=== PATIENT | female | born 1955 | race Caucasian/White ===

== ENCOUNTER 2017-05-05 07:26 | Inpatient (IN) ==
[2017-05-03 19:51] LABS: Appearance,Urine CLEAR; Bacteria,Urine 0 /hpf (0); Bilirubin,Urine NEG (NEG); Color,Urine YELLOW; Glucose,Urine (UA) NEGATIVE (NEG); Leukocyte Esterase,Urine 500 /uL (NEG); Mucus,Urine FEW /hpf (0); Protein,Urine NEG (NEG); Specific Gravity,Urine 1.013 (1.000-1.035); Urine Blood 0.03 mg/dL (<0.03); Urine RBC 1 /hpf (0-1); Urine Squamous Epithelial Cell 3 /hpf (0-4); Urine Transitional Epi Cells 2 /hpf (0-2); Urine WBC 59 /hpf (0-4); Urobilinogen,Urine NEG (NEG)
[2017-05-03 21:12] LABS: Blood Urea Nitrogen 14 mg/dl (8-23)
[2017-05-03 21:19] LABS: Basophils # (Auto) 0 K/mcL (0.0-0.3); Basophils % (Auto) 0.3 % (0.0-2.0); Eosinophils # (Auto) 0.4 K/mcL (0.0-0.7); Eosinophils % (Auto) 3.5 % (0.0-7.0); Granulocytes % (Auto) 66.8 % (38.0-78.0); Lymphocytes # (Auto) 3.1 K/mcL (1.5-4.8); Lymphocytes % (Auto) 25.7 % (15.5-49.0); Mean Corpuscular HGB Conc 32.7 g/dL (31.0-36.0); Mean Corpuscular Hemoglobin 26.9 pg (26.0-34.0); Monocytes # (Auto) 0.4 K/mcL (0.1-0.9); Monocytes % (Auto) 3.7 % (1.0-12.0); Platelet Count 430 K/mcL (140-440); Red Cell Distribution Width 14.7 % (11.5-14.5)
[~2017-05-05 07:26] MED LIST: CELECOXIB 200 MG CAPSULE PO SCH; PREGABALIN 75 MG CAPSULE PO SCH; VANCOMYCIN 1,500 MG in 0.9 % SODIUM CHLORIDE 500 ML IV SCH; oxyCODONE 10 MG TAB.ER.12H PO SCH
[2017-05-05 09:14] LABS: Appearance,Urine CLEAR; Bilirubin,Urine NEG (NEG); Color,Urine PALE YELLOW; Glucose,Urine (UA) NORM (NEG); Leukocyte Esterase,Urine NEG /uL (NEG); Protein,Urine NEG (NEG); Specific Gravity,Urine 1.018 (1.000-1.035); Urine Blood NEG ery/mcL (<5); Urobilinogen,Urine NORM (NEG)
[2017-05-05] MEDS ORDERED: GENTAMICIN SULFATE 80 MG in 0.9 % SODIUM CHLORIDE 250 ML IV SCH (10:45)
[2017-05-05] MEDS ORDERED: BUPIVACAINE W/EPI 0.5% 50 ML VIAL IJ ONE (11:38)
[2017-05-05] MEDS ORDERED: HYDROmorphone 2 MG/ML VIAL IV ONE (12:00)
[2017-05-05] MEDS ORDERED: PROPOFOL 200 MG/20 ML VIAL IV ONE (12:00)
[2017-05-05] MEDS ORDERED: NALBUPHINE 10 MG/ML AMPUL IV ONE (12:00)
[2017-05-05] MEDS ORDERED: PHENYLEPHRINE 10 MG/ML VIAL IV ONE (12:00)
[2017-05-05] MEDS ORDERED: MIDAZOLAM 2 MG/2 ML VIAL IV ONE (12:00)
[2017-05-05] MEDS ORDERED: KETAMINE 100 MG/ML ML IV ONE (12:00)
[2017-05-05] MEDS ORDERED: TRANEXAMIC ACID 1,000 MG/10 ML VIAL IV ONE (12:00)
[2017-05-05] MEDS ORDERED: LIDOCAINE HCL/PF 100 MG/5 ML SYRINGE IV ONE (12:00)
[2017-05-05] MEDS ORDERED: ONDANSETRON 4 MG/2 ML VIAL IV ONE (12:00)
[2017-05-05] MEDS ORDERED: GLYCOPYRROLATE 0.2 MG/ML VIAL IV ONE (12:00)
[2017-05-05] MEDS ORDERED: diphenhydrAMINE 50 MG/ML VIAL IV PRN (13:20)
[2017-05-05] MEDS ORDERED: ePHEDrine 50 MG/ML AMPUL IV PRN (13:20)
[2017-05-05] MEDS ORDERED: METOPROLOL TARTRATE 5 MG/5 ML VIAL IV PRN (13:20)
[2017-05-05] MEDS ORDERED: PROMETHAZINE 25 MG/ML VIAL IV PRN (13:20)
[2017-05-05] MEDS ORDERED: IPRATROPIUM/ALBUTEROL 3 ML AMPUL.NEB NEB PRN (13:20)
[2017-05-05] MEDS ORDERED: ONDANSETRON 4 MG/2 ML VIAL IV PRN ×2 (13:20→13:30)
[2017-05-05] MEDS ORDERED: METHOCARBAMOL 1,000 MG/10 ML VIAL IV PRN (13:20)
[2017-05-05] MEDS ORDERED: NALOXONE HCL 0.4 MG/ML VIAL IV PRN (13:20)
--- NOTE | 2017-05-05 13:29 | Brief Operative Note ---
Date of procedure: 05/05/17 Pre-op diagnosis: R shoulder severe DJD Post-op diagnosis: same Procedure: R total shoulder arthroplasty Grafts/Implants: Yes (Depuy 44 anchor peg, global 10 unite stem, 44x15 eccentric head) Anesthesia: GETA Findings: severe arthritis, osteopenia Complications: none Surgeon: Smith Donaldson Etcher Electrolytic: Josué Jeronimo Estimated blood loss (cc): 30 Specimens Removed/Pathology: none sent Condition: stable Disposition: PACU
[2017-05-05] MEDS ORDERED: DEXTROSE 50% 50 ML VIAL IV PRN (13:30)
[2017-05-05] MEDS ORDERED: DEXTROSE 31 GM ORAL.SUSP PO PRN (13:30)
[2017-05-05] MEDS ORDERED: MAGNESIUM HYDROXIDE 30 ML ORAL.SUSP PO PRN (13:30)
[2017-05-05] MEDS ORDERED: FLEETS ADULT ENEMA PR PRN (13:30)
[2017-05-05] MEDS ORDERED: BISACODYL 10 MG SUPP.RECT PR PRN (13:30)
[2017-05-05] MEDS ORDERED: LACTATED RINGERS 1,000 ML IV SCH (13:30)
[2017-05-05] MEDS ORDERED: TRANEXAMIC ACID 1,000 MG/10 ML VIAL IV SCH (13:30)
[2017-05-05] MEDS ORDERED: POLYETHYLENE GLYCOL 3350 17 GM PACKET PO PRN (13:30)
[2017-05-05] MEDS ORDERED: BENZOCAINE/MENTHOL 1 LOZENGE PO PRN (13:30)
[2017-05-05] MEDS ORDERED: METAXALONE 800 MG TABLET PO PRN (13:41)
[2017-05-05] MEDS: fentaNYL 100 MCG/2 ML VIAL IV PRN ×9 (14:09→14:50)
--- NOTE | 2017-05-05 14:22 | Operative Note ---
DATE OF OPERATION: 05/05/2017 PREOPERATIVE DIAGNOSIS: Right shoulder severe osteoarthritis. POSTOPERATIVE DIAGNOSIS: Right shoulder severe osteoarthritis. PROCEDURE PERFORMED: Right total shoulder arthroplasty placing a DePuy Global Unite size 10 cementless stem, a 44 x 15 eccentric humeral head, and a 44 [place] Peg Glenoid. SURGEON: Smith Donaldson M.D. COMMUNITY SERVICE AIDE: Reji Jeronimo PA-C. ANESTHESIA: General. DRAINS: None. SPECIMENS: None. COMPLICATIONS: None. BLOOD LOSS: 100 mL. POSTOPERATIVE CONDITION: Stable. INDICATIONS FOR SURGERY: This is a 61-year-old female who has had longstanding worsening right shoulder pain. Radiographs showed severe [id number] osteoarthritis with large osteophytes formation. Post-implantation showed good overall component position. However, she did have poor bone quality. PROCEDURE IN DETAIL: The patient had been seen preoperatively. Informed consent had been obtained after discussion of risks and benefits of surgery. Risks including, but not limited to, bleeding, possibly requiring transfusion; infection, possibly requiring implant removal and prolonged IV antibiotics; injury to nerves, blood vessels, and other surrounding structures; anesthetic risks; incomplete or no resolution of symptoms; stiffness; pain; weakness; dislocation; fracture; possibility of needing further revision surgery. She understood these risks and wished to proceed. Correct operative site was marked and then patient was taken to the operating room. General anesthesia was induced. She was carefully positioned in the beach chair position and pressure points carefully padded. The right shoulder and upper extremity was carefully prepped and draped in normal sterile fashion. Ioban was used to cover all skin surfaces and then a standard deltopectoral incision was made with scalpel through skin and subcutaneous tissue. Irrisept was irrigated and then we continued carefully bluntly dissecting down onto the cephalic vein and then dissected medial to it, and blunt finger dissection was used to develop the subdeltoid space. Cao deltoid retractor was placed. We then placed a blue handle retractor underneath the conjoined tendon. We went ahead and identified the bicipital groove. The biceps appeared to already be ruptured and scarred. We made a lesser tuberosity osteotomy and then placed a traction stitch around this. We then went ahead and placed the 2-tooth on the glenoid. The humeral head was then dislocated out. We released capsule around the inferior neck of the humeral head and osteophytes were removed with a curved osteotome. We then subluxed the head posteriorly and started exposing the glenoid. We released what remained of labrum and also capsule around the inferior glenoid, staying right on bone with the Bovie. We then used an osteotome on the humeral head to aid our exposure and then a central pin was placed. We then reamed up to a 44 reamer. She was fairly small [id number]. There was some superior glenoid osteophyte that we removed as well. Once we had contacted bone circumferentially, we then drilled our central peg and then after that drilled our three peripheral pegs. Cement was mixed while the [place] Peg Glenoid was packed with DBX in the central flutes. We irrigated Irrisept in the joint, after a minute pulse lavaged with saline, and then injected cement into the three peripheral holes and pressurized and then impacted the [place] Peg Glenoid. This was held absolutely still until cement had fully hardened. Meanwhile, the joint was filled with Irrisept. We then pulse lavaged and redislocated the humeral head. It appeared to be damaged beyond what cap would be appropriate for, so we went ahead and made our head cut with the saw and then started reaming down the canal. She had very poor bone quality. We did get canal contact with a 10 reamer, so we then did 30 degrees of retroversion and impacted the trial with the fins to punch and then placed our definitive trial. We liked this position, so we went ahead and opened the stem. We removed the trial and irrigated Irrisept down the humeral canal. After a minute we pulse lavaged and then impacted the stem. A 44 x 15 seemed to fit best, so we placed this with the eccentricity going superiorly. The humerus was reduced. We made drill holes in the bicipital groove medial to the osteotomy and then used a #2 FiberWire [id number] around the lesser tuberosity fragment and tied this. The subscapularis was somewhat thin and poor quality, however. We did go ahead and close the rotator interval with a #2 FiberWire and then our traction stitch was used with a free needle to also reinforce the subscap repair. We irrigated Irrisept again, after a minute pulse lavaged with saline. A running #1 Vicryl was used to close the deltopectoral interval. Final Irrisept irrigation was done, and then after a minute final pulse lavage, and then 2-0 Monocryl for subcutaneous and cesar for skin. Xeroform and sterile dressing were applied, and patient was then awakened, extubated, and transferred to recovery in stable condition. LARRY:zeyad Job ID: [id number] Doc ID: [id number] Smith Donaldson MD
[2017-05-05] MEDS ORDERED: DIAZEPAM 10 MG/2 ML SYRINGE IV PRN (14:28)
[2017-05-05] MEDS ORDERED: LORazepam 2 MG/ML VIAL IV SCH (14:45)
[2017-05-05] MEDS ORDERED: LORazepam 2 MG/ML VIAL IV PRN (14:45)
--- NOTE | 2017-05-05 14:45 | XRay Report ---
CLINICAL INFORMATION: Reason for Exam:Post-OP Total Shoulder COMPARISON: None. FINDINGS: Shoulder prostheses is anatomically aligned. No osseous abnormality. Soft tissues swelling seen as expected IMPRESSION: Negative Interpreted and Authenticated by: Nhan Henriquez 05/05/17
[2017-05-05] MEDS: 0.9 % SODIUM CHLORIDE 1,000 ML IV SCH (15:19)
[2017-05-05] MEDS: 0.9 % SODIUM CHLORIDE 10 ML SYRINGE IV SCH ×2 (15:28→22:06)
[2017-05-05] MEDS: HYDROcodone/APAP 10/325MG TABLET PO PRN ×2 (15:45→19:51)
[2017-05-05] MEDS: KETOROLAC 15 MG/ML VIAL IV PRN ×2 (16:50→22:17)
[2017-05-05] MEDS ORDERED: INSULIN LISPRO 1 UNIT/0.01 ML UNIT SQ SCH (17:00)
[2017-05-05] MEDS: DOCUSATE SODIUM 100 MG CAPSULE PO SCH (19:51)
[2017-05-05] MEDS: CLINDAMYCIN 900 MG in 0.9 % SODIUM CHLORIDE 50 ML IV SCH (19:51)
[2017-05-05] MEDS ORDERED: SENNOSIDES 1 TABLET PO SCH (21:00)
[2017-05-05] MEDS ORDERED: LORazepam 0.5 MG TABLET PO PRN (21:00)
[2017-05-06] MEDS: HYDROcodone/APAP 10/325MG TABLET PO PRN ×4 (01:35→12:20)
[2017-05-06] MEDS: 0.9 % SODIUM CHLORIDE 1,000 ML IV SCH ×2 (01:35→09:36)
[2017-05-06] MEDS: KETOROLAC 15 MG/ML VIAL IV PRN (04:49)
[2017-05-06] MEDS: CLINDAMYCIN 900 MG in 0.9 % SODIUM CHLORIDE 50 ML IV SCH (04:49)
[2017-05-06] MEDS: 0.9 % SODIUM CHLORIDE 10 ML SYRINGE IV SCH (05:55)
[2017-05-06] MEDS ORDERED: OMEPRAZOLE 20 MG CAPSULE PO SCH (07:30)
[2017-05-06] MEDS ORDERED: LEVOTHYROXINE SODIUM 112 MCG TABLET PO SCH (07:30)
--- NOTE | 2017-05-06 07:47 | Discharge Summary ---
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 Chief Complaint: [] Discharge date: 05/06/17 Hospitalization Hospital course: Pt was admitted for a R TSA. Pt underwent the procedure on day of admission. Pt spent one night on the floor for IV pain meds, IV abx, and PT. Pt discharged on post-op day 1. Will f/u at [facility] in 10-14 days. Discharge diagnosis: R shoulder osetoarthrosis Exam - Exam Clean and dry: Yes Weight bearing status: none Ortho Discharge - TSA - Patient Instructions Diet: Regular Diet Activity: activity as tolerated, non weight bearing Total Shoulder Protocol: Leave immobilizer in place except for bathing and ROM. Abduction pillow. Continue to wear sling until seen by physician. [place]man Pendulum : These exercises use momentum produced by your body to move your shoulder joint. Bend your knees and shift your weight to your front leg, then back, allowing your arm to swing in the same directions. Using the same technique, alternately shift your weight between your right and left legs, allowing your arm to swing from side to side. These exercises are also performed in counterclockwise and clockwise circular motions. Typically these exercises are performed several times per day, for a set number repetitions or minutes, such as 20 times in a row or 5 minutes at a time. Dressing Care: May shower in 2 days Patient Education: Shoulder Arthroscopy (DC) - Follow Up Plan Follow Up Appointments: Josué Jeronimo PA-C [Physician Administration Intern] - 05/20/17 10:40 am Disposition: Home, Self-Care Prognosis: Good Rehab Potential: Good Overall status at discharge: patient is progressing back to baseline - Orders For Discharge Prescriptions: HYDROcodone/APAP 10/325MG [[place] 10-325Mg] 1 - 2 tab PO Q4HP PRN #60 tab PRN Reason: Pain Level 3-6 Pending Studies Resuscitation Status Full Code Diet Regular Diet Start WedMay 05 1700 Hydrocodone Bitart/Acetaminophen ([place] 10/325mg) 0 tab PO Q4HP PRN PRN Reason: PAIN LEVEL 3-6 Last Admin: 05/06/17 04:49 Dose: 1 tab Admin: 05/06/17 01:35 Dose: 1 tab Admin: 05/05/17 19:51 Dose: 2 tab Admin: 05/05/17 15:45 Dose: 2 tab Docusate Sodium (Colace) 100 mg PO BID [facility] Last Admin: 05/05/17 19:51 Dose: 100 mg Sodium Chloride (Sodium Chloride 0.9%) 1,000 mls @ 100 mls/hr IV .Q10H [facility] Last Admin: 05/06/17 01:35 Dose: 100 mls/hr Infusion: 05/06/17 01:19 Dose: 100 mls/hr Admin: 05/05/17 15:19 Dose: 100 mls/hr Ketorolac Tromethamine (Toradol) 15 mg IV Q6HP PRN PRN Reason: Pain Stop: 05/07/17 13:33 Last Admin: 05/06/17 04:49 Dose: 15 mg Admin: 05/05/17 22:17 Dose: 15 mg Admin: 05/05/17 16:50 Dose: 15 mg Levothyroxine Sodium (Synthroid) 112 mcg PO ACB [facility] Last Admin: 05/06/17 07:04 Dose: 112 mcg Morphine Sulfate (Morphine) 0 mg IV Q1HP PRN PRN Reason: PAIN LEVEL > 6 Last Admin: 05/05/17 18:48 Dose: 2 mg Admin: 05/05/17 15:19 Dose: 4 mg Omeprazole (Prilosec) 20 mg PO ACB [facility] Last Admin: 05/06/17 07:04 Dose: 20 mg Senna (Senokot) 2 tab PO HS [facility] Last Admin: 05/05/17 19:51 Dose: 2 tab Sodium Chloride (Saline Flush) 10 ml IV Q8 [facility] Last Admin: 05/06/17 05:55 Dose: Not Given Admin: 05/05/17 22:06 Dose: Not Given Admin: 05/05/17 15:28 Dose: Not Given Shift Summary 05/06/17 04:08 Shift Summary by Jose Zavaleta up w/1 assist to BR, slightly unsteady at times, voiding QS with no PVR, peripad in place d/t stress incontinence, will SL IV this AM, dsg with marked fingerprint myrick, immobilizer in place, medicated with norco 10/325mg 2 tabs once at 1999, pt put on 2L NC at midnight d/t RA sats 82%, now on 1L NC sats high 90's, has received norco 1 tab once since midnight, given toradol Q6H prn, ice to shoulder also for pain control, pt needs continued teaching about pain scale - rates pain 7-8/10 even though sleeping well, AVB on t/o night, supportive- no orders for d/c at this time Initialized on 05/06/17 04:08 - END OF NOTE
[2017-05-06] MEDS ORDERED: POTASSIUM CHLORIDE 10 MEQ TABLET PO SCH (08:00)
[2017-05-06] MEDS: DOCUSATE SODIUM 100 MG CAPSULE PO SCH (08:35)
[2017-05-06] MEDS ORDERED: FLUoxetine HCL 20 MG CAPSULE PO SCH (09:00)
[2017-05-06] MEDS ORDERED: LOSARTAN 50 MG TABLET PO SCH (09:00)
[2017-05-06] MEDS ORDERED: HYDROCHLOROTHIAZIDE 25 MG TABLET PO SCH (09:00)
== END 2017-05-06 12:25 | disposition home or self-care (01) | DRG 483 ==
LOC: MEDSUR 07:26
PROVIDERS: ADMIT Orthopaedic Surgery; ATTEND Orthopaedic Surgery

== ENCOUNTER 2024-06-17 11:24 | Inpatient (IN) ==
[2024-06-17] MEDS: KETOROLAC 15 MG/ML VIAL IV ONE (11:51)
[2024-06-17] MEDS: HYDROmorphone 0.5 MG/0.5 ML SYRINGE IV ONE (13:31)
[2024-06-17] MEDS: HYDROcodone/APAP 5/325MG TABLET PO ONE (13:45)
[2024-06-17] MEDS: HYDROcodone/APAP 10/325MG TABLET PO ONE (13:45)
[2024-06-17 14:50] LABS: Basophils # (Auto) 0.06 K/mcL (0.00-0.30); Basophils % (Auto) 0.4 % (0.0-2.0); Eosinophils # (Auto) 0.29 K/mcL (0.00-0.70); Eosinophils % (Auto) 2.1 % (0.0-7.0); Hematocrit 30.5 % (34.1-44.9); Hemoglobin 9.2 g/dL (11.2-15.7); Lymphocytes # (Auto) 3.31 K/mcL (1.50-4.80); Lymphocytes % (Auto) 23.9 % (15.5-49.0); Mean Corpuscular HGB Conc 30.2 g/dL (31.0-36.0); Mean Platelet Volume 10.1 fL (8.8-12.5); Monocytes # (Auto) 0.72 K/mcL (0.10-0.90); Monocytes % (Auto) 5.2 % (1.0-12.0); Neutrophils % (Auto) 68.3 % (38.0-78.0); Platelet Count 423 K/mcL (140-440); RBC 3.35 M/mcL (3.59-5.38); Red Cell Distribution Width 15.2 % (11.5-14.5); WBC 13.9 K/mcL (4.5-11.0)
[2024-06-17 15:06] LABS: ALT/SGPT 8 U/L (<40); AST/SGOT 20 U/L (<32); Albumin 3.6 gm/dL (3.2-5.2); Albumin/Globulin Ratio 0.9 (1.0-2.3); Alkaline Phosphatase 65 U/L (39-117); Bilirubin,Total 0.5 mg/dL (0.1-1.0); Blood Urea Nitrogen 28 mg/dL (8-23); Calcium 9.7 mg/dL (8.6-10.4); Carbon Dioxide 21 mmol/L (22-30); Chloride 103 mmol/L (96-108); Globulin 3.8 gm/dL (2.2-3.7); Glomerular Filtration Rate 75; Glucose 95 mg/dL (70-105); Potassium 3.1 mmol/L (3.3-5.1); Sodium 140 mmol/L (133-145)
[2024-06-17] MEDS: POTASSIUM CHLORIDE 20 MEQ TABLET PO ONE (15:43)
[2024-06-17 15:53] LABS: Appearance,Urine Slightly Cloudy (Clear); Bacteria,Urine Many /hpf (0); Bilirubin,Urine Negative (Negative); Color,Urine Yellow; Glucose,Urine (UA) Negative (Negative); Ketones,Urine Negative (Negative); Leukocyte Esterase,Urine Small /uL (Negative); Nitrate,Urine Negative (Negative); Protein,Urine Trace mg/dL (Negative); Specific Gravity,Urine 1.015 (1.000-1.035); Urine Blood Negative ery/mcL (Negative); Urine Hyaline Cast 4 /lph (0-2); Urine RBC 0 /hpf (0-3); Urine Squamous Epithelial Cell 2 /hpf (0-4); Urine WBC 12 /hpf (0-4); Urobilinogen,Urine Normal
[2024-06-17] MEDS: ACETAMINOPHEN 500 MG TABLET PO ONE (15:56)
[2024-06-17] MEDS: METHOCARBAMOL 1,000 MG/10 ML VIAL IV ONE (15:56)
[2024-06-17] MEDS: cefTRIAXone 1 GM VIAL IV ONE (16:19)
[2024-06-17] MEDS ORDERED: ONDANSETRON 4 MG/2 ML VIAL IV PRN (17:17)
[2024-06-17] MEDS ORDERED: PROCHLORPERAZINE 10 MG/2 ML VIAL IV PRN (17:17)
[2024-06-17] MEDS: morphine 4 MG/ML VIAL IV PRN (17:35)
[2024-06-17] MEDS: MELATONIN 3 MG TABLET PO SCH (19:45)
[2024-06-17] MEDS: LORazepam 0.5 MG TABLET PO PRN (19:45)
[2024-06-17] MEDS: DOCUSATE SODIUM 100 MG CAPSULE PO SCH (20:39)
[2024-06-17] MEDS: SENNOSIDES 1 TABLET PO SCH (20:39)
[2024-06-17] MEDS: HYDROcodone/APAP 5/325MG TABLET PO PRN (20:50)
[2024-06-17] MEDS: 0.9 % SODIUM CHLORIDE 10 ML SYRINGE IV SCH (20:50)
[2024-06-18 07:10] LABS: Basophils # (Auto) 0.06 K/mcL (0.00-0.30); Basophils % (Auto) 0.5 % (0.0-2.0); Eosinophils # (Auto) 0.51 K/mcL (0.00-0.70); Eosinophils % (Auto) 4.2 % (0.0-7.0); Hemoglobin 8.8 g/dL (11.2-15.7); Lymphocytes # (Auto) 2.47 K/mcL (1.50-4.80); Lymphocytes % (Auto) 20.3 % (15.5-49.0); Mean Cell Volume 91.5 fL (80.0-100.0); Mean Corpuscular HGB Conc 30.3 g/dL (31.0-36.0); Mean Platelet Volume 9.9 fL (8.8-12.5); Monocytes # (Auto) 0.82 K/mcL (0.10-0.90); Monocytes % (Auto) 6.8 % (1.0-12.0); Platelet Count 400 K/mcL (140-440); RBC 3.17 M/mcL (3.59-5.38); Red Cell Distribution Width 15.3 % (11.5-14.5); WBC 12.1 K/mcL (4.5-11.0)
[2024-06-18 07:39] LABS: Blood Urea Nitrogen 32 mg/dL (8-23); Calcium 9.2 mg/dL (8.6-10.4); Carbon Dioxide 19 mmol/L (22-30); Chloride 105 mmol/L (96-108); Glomerular Filtration Rate 75; Glucose 105 mg/dL (70-105); Potassium 3.1 mmol/L (3.3-5.1); Sodium 139 mmol/L (133-145)
[2024-06-18] MEDS: LEVOTHYROXINE SODIUM 112 MCG TABLET PO SCH (07:52)
[2024-06-18] MEDS: POLYETHYLENE GLYCOL 3350 17 GM PACKET PO SCH (08:06)
[2024-06-18] MEDS: KETOROLAC 30 MG/ML VIAL IV PRN (08:25)
[2024-06-18] MEDS: cefTRIAXone 1 GM VIAL IV SCH (08:27)
[2024-06-18] MEDS: ENOXAPARIN 40 MG/0.4 ML SYRINGE SQ SCH (08:30)
[2024-06-18] MEDS: FLUoxetine HCL 20 MG CAPSULE PO SCH (08:30)
[2024-06-18] MEDS: POTASSIUM CHLORIDE 20 MEQ TABLET PO SCH (08:33)
[2024-06-18] MEDS: OMEPRAZOLE 20 MG CAPSULE PO SCH (15:33)
[2024-06-18] MEDS ORDERED: busPIRone 5 MG TABLET PO PRN (18:00)
[2024-06-19 06:48] LABS: Basophils # (Auto) 0.05 K/mcL (0.00-0.30); Basophils % (Auto) 0.5 % (0.0-2.0); Eosinophils # (Auto) 0.43 K/mcL (0.00-0.70); Eosinophils % (Auto) 4.6 % (0.0-7.0); Hematocrit 27.8 % (34.1-44.9); Hemoglobin 8.5 g/dL (11.2-15.7); Lymphocytes # (Auto) 2.28 K/mcL (1.50-4.80); Lymphocytes % (Auto) 24.2 % (15.5-49.0); Mean Cell Volume 91.7 fL (80.0-100.0); Mean Corpuscular HGB Conc 30.6 g/dL (31.0-36.0); Mean Platelet Volume 9.6 fL (8.8-12.5); Monocytes # (Auto) 0.73 K/mcL (0.10-0.90); Monocytes % (Auto) 7.8 % (1.0-12.0); Neutrophils % (Auto) 62.4 % (38.0-78.0); Platelet Count 362 K/mcL (140-440); RBC 3.03 M/mcL (3.59-5.38); WBC 9.4 K/mcL (4.5-11.0)
[2024-06-19 07:41] LABS: Blood Urea Nitrogen 29 mg/dL (8-23); Carbon Dioxide 21 mmol/L (22-30); Chloride 107 mmol/L (96-108); Glomerular Filtration Rate 88; Glucose 108 mg/dL (70-105); Potassium 3.8 mmol/L (3.3-5.1); Sodium 140 mmol/L (133-145)
[2024-06-19] MEDS: ASCORBIC ACID 500 MG TABLET PO SCH (08:28)
[2024-06-19] MEDS: LOSARTAN 50 MG TABLET PO SCH (08:28)
[2024-06-19] MEDS: HYDROCHLOROTHIAZIDE 25 MG TABLET PO SCH (08:28)
[2024-06-19] MEDS ORDERED: LOSARTAN/HCTZ 100/25 TABLET PO SCH (09:00)
[2024-06-19] MEDS ORDERED: NALOXONE HCL 0.4 MG/ML VIAL IV PRN (09:19)
[2024-06-19] MEDS: HYDROcodone/APAP 10/325MG TABLET PO PRN (10:37)
[2024-06-19] MEDS: ACETAMINOPHEN 325 MG TABLET PO PRN (19:23)
[2024-06-20 06:30] LABS: Basophils # (Auto) 0.04 K/mcL (0.00-0.30); Basophils % (Auto) 0.3 % (0.0-2.0); Eosinophils % (Auto) 4.3 % (0.0-7.0); Hematocrit 28.4 % (34.1-44.9); Hemoglobin 8.6 g/dL (11.2-15.7); Lymphocytes # (Auto) 3.22 K/mcL (1.50-4.80); Lymphocytes % (Auto) 27.6 % (15.5-49.0); Mean Cell Volume 92.2 fL (80.0-100.0); Mean Corpuscular HGB Conc 30.3 g/dL (31.0-36.0); Mean Platelet Volume 9.7 fL (8.8-12.5); Monocytes # (Auto) 0.84 K/mcL (0.10-0.90); Monocytes % (Auto) 7.2 % (1.0-12.0); Neutrophils % (Auto) 59.7 % (38.0-78.0); Platelet Count 380 K/mcL (140-440); RBC 3.08 M/mcL (3.59-5.38); Red Cell Distribution Width 15.3 % (11.5-14.5); WBC 11.7 K/mcL (4.5-11.0)
[2024-06-20 07:06] LABS: Blood Urea Nitrogen 27 mg/dL (8-23); Calcium 9.3 mg/dL (8.6-10.4); Carbon Dioxide 20 mmol/L (22-30); Chloride 107 mmol/L (96-108); Glomerular Filtration Rate 93; Glucose 114 mg/dL (70-105); Potassium 3.5 mmol/L (3.3-5.1); Sodium 142 mmol/L (133-145)
[2024-06-20] MEDS: IBUPROFEN 800 MG TABLET PO PRN (07:42)
[2024-06-21 06:22] LABS: Basophils # (Auto) 0.05 K/mcL (0.00-0.30); Basophils % (Auto) 0.4 % (0.0-2.0); Eosinophils # (Auto) 0.52 K/mcL (0.00-0.70); Eosinophils % (Auto) 4.5 % (0.0-7.0); Hemoglobin 8.8 g/dL (11.2-15.7); Lymphocytes # (Auto) 3.07 K/mcL (1.50-4.80); Lymphocytes % (Auto) 26.6 % (15.5-49.0); Mean Cell Volume 94.2 fL (80.0-100.0); Mean Corpuscular HGB Conc 30.3 g/dL (31.0-36.0); Mean Platelet Volume 9.6 fL (8.8-12.5); Monocytes % (Auto) 6.9 % (1.0-12.0); Neutrophils % (Auto) 60.2 % (38.0-78.0); Platelet Count 396 K/mcL (140-440); RBC 3.08 M/mcL (3.59-5.38); Red Cell Distribution Width 15.7 % (11.5-14.5); WBC 11.6 K/mcL (4.5-11.0)
[2024-06-21 06:35] LABS: Blood Urea Nitrogen 22 mg/dL (8-23); Carbon Dioxide 20 mmol/L (22-30); Chloride 107 mmol/L (96-108); Glomerular Filtration Rate 93; Glucose 109 mg/dL (70-105); Potassium 3.5 mmol/L (3.3-5.1); Sodium 142 mmol/L (133-145)
[2024-06-21 08:05] VITALS: TEMP 98.1
[2024-06-21] MEDS: CEFDINIR 300 MG CAPSULE PO SCH (09:29)
[2024-06-21 10:27] VITALS: O2SAT 95
== END 2024-06-21 13:15 | DRG 552 ==
LOC: ED 11:24 → MEDSUR 17:13
PROVIDERS: ADMIT Student in an Organized Health Care Education/Training Program; ATTEND Student in an Organized Health Care Education/Training Program